=== PATIENT | male | born 1955 | race Caucasian/White ===

== ENCOUNTER 2017-11-08 10:27 | Emergency (ER) | payer BC ==
[2017-11-08] MEDS ORDERED: SODIUM CHLORIDE 0.9% 1,000 ML IV STA (11:05)
[2017-11-08] MEDS ORDERED: SODIUM CHLORIDE 0.9% 500 ML IV STA (11:05)
--- NOTE | 2017-11-08 11:08 | ED ---
Syncope HPI - General Chief Complaint: Syncope Stated Complaint: Near syncope Time Seen by Provider: 11/08/17 10:36 Source: patient, RN notes reviewed Mode of arrival: ambulatory Limitations: no limitations - History of Present Illness Initial Comments: This is a 61-year-old male who states she was at work standing for about 20 minutes. We started feeling lightheaded, diaphoretic racing heart, felt flushed. Vitals and passed out. Lasted even after he went to his office with air conditioning. No chest pain no overt shortness of breath. No other symptoms. He states this is happened before where he will feel as same type of dizziness. He is nonsmoker, no street drugs. No other modifying factors at this time. He is showing better at this time. MD Complaint: almost passed out - Related Data Previous Rx's Medication Instructions Recorded Meclizine [Antivert] 25 mg PO TID #20 tab 11/08/17 Allergies Allergy/AdvReac Type Severity Reaction Status Date / Time No Known Allergies Allergy Verified 11/08/17 11:51 Review of Systems ROS Statement: Those systems with pertinent positive or pertinent negative responses have been documented in the HPI. ROS Other: All systems not noted in ROS Statement are negative. Past Medical History Additional Past Medical History / Comment(s): diverticulosis History of Any Multi-Drug Resistant Organisms: None Reported Past Surgical History: Bowel Resection Past Psychological History: No Psychological Hx Reported Smoking Status: Never smoker Past Alcohol Use History: Occasional Past Drug Use History: None Reported General Exam - General Exam Comments Initial Comments: This is a well-developed well-nourished awake alert oriented times 3 male Limitations: no limitations General appearance: alert, in no apparent distress Head exam: Present: atraumatic, normocephalic, normal inspection Eye exam: Present: normal appearance, PERRL, EOMI. Absent: scleral icterus, conjunctival injection, periorbital swelling ENT exam: Present: normal exam, mucous membranes moist Neck exam: Present: normal inspection. Absent: tenderness, meningismus, lymphadenopathy Respiratory exam: Present: normal lung sounds bilaterally. Absent: respiratory distress, wheezes, rales, rhonchi, stridor Cardiovascular Exam: Present: regular rate, normal rhythm, normal heart sounds. Absent: systolic murmur, diastolic murmur, rubs, gallop, clicks GI/Abdominal exam: Present: soft, normal bowel sounds. Absent: distended, tenderness, guarding, rebound, rigid Extremities exam: Present: normal inspection, full ROM, normal capillary refill. Absent: tenderness, pedal edema, joint swelling, calf tenderness Back exam: Present: normal inspection Neurological exam: Present: alert, oriented X3, CN II-XII intact Psychiatric exam: Present: normal affect, normal mood Skin exam: Present: warm, dry, intact, normal color. Absent: rash Course Vital Signs 11/08/17 11/08/17 11/08/17 10:30 11:35 12:05 Temperature 97.9 F Pulse Rate 77 86 Pulse Rate [ 87 Right Sitting] Pulse Rate [ 93 Right Standing] Pulse Rate [ 74 Right Supine] Respiratory 16 16 Rate Blood Pressure 134/88 132/86 Blood Pressure 157/98 [Right Arm Sitting] Blood Pressure 147/95 [Right Arm Standing] Blood Pressure 132/82 [Right Arm Supine] O2 Sat by Pulse 98 96 Oximetry Medical Decision Making - Medical Decision Making I did was discussed with patient regarding the findings he's had several episodes of this in the past. He will be discharged at this time. The current presentation appears be consistent with a vasovagal reaction. He'll be placed on a short course of Antivert. - Lab Data Result diagrams: 11/08/17 10:55 11/08/17 10:55 Lab Results 11/08/17 11/08/17 11/08/17 Range/Units 10:55 10:55 10:55 WBC 5.2 (3.8-10.6) k/uL RBC 5.16 (4.30-5.90) m/uL Hgb 15.1 (13.0-17.5) gm/dL Hct 44.1 (39.0-53.0) % MCV 85.4 (80.0-100.0) fL MCH 29.2 (25.0-35.0) pg MCHC 34.2 (31.0-37.0) g/dL RDW 13.1 (11.5-15.5) % Plt Count 166 (150-450) k/uL Neutrophils % 52 % Lymphocytes % 39 % Monocytes % 5 % Eosinophils % 1 % Basophils % 0 % Neutrophils # 2.7 (1.3-7.7) k/uL Lymphocytes # 2.0 (1.0-4.8) k/uL Monocytes # 0.3 (0-1.0) k/uL Eosinophils # 0.1 (0-0.7) k/uL Basophils # 0.0 (0-0.2) k/uL PT (9.0-12.0) sec INR (<1.2) APTT (22.0-30.0) sec D-Dimer (<0.60) mg/L FEU Sodium 142 (137-145) mmol/L Potassium 4.1 (3.5-5.1) mmol/L Chloride 108 H (98-107) mmol/L Carbon Dioxide 25 (22-30) mmol/L Anion Gap 9 mmol/L BUN 14 (9-20) mg/dL Creatinine 0.90 (0.66-1.25) mg/dL Est GFR (CKD-EPI)AfAm >90 (>60 ml/min/1.73 sqM) Est GFR (CKD-EPI)NonAf >90 (>60 ml/min/1.73 sqM) Glucose 133 H (74-99) mg/dL Calcium 9.7 (8.4-10.2) mg/dL Magnesium 2.1 (1.6-2.3) mg/dL Total Bilirubin 0.8 (0.2-1.3) mg/dL AST 21 (17-59) U/L ALT 36 (21-72) U/L Alkaline Phosphatase 64 (38-126) U/L Total Creatine Kinase 67 (55-170) U/L CK-MB (CK-2) 0.5 (0.0-2.4) ng/mL CK-MB (CK-2) Rel Index 0.7 Troponin I <0.012 (0.000-0.034) ng/mL Total Protein 6.8 (6.3-8.2) g/dL Albumin 4.3 (3.5-5.0) g/dL TSH 1.050 (0.465-4.680) mIU/L 11/08/17 Range/Units 10:55 WBC (3.8-10.6) k/uL RBC (4.30-5.90) m/uL Hgb (13.0-17.5) gm/dL Hct (39.0-53.0) % MCV (80.0-100.0) fL MCH (25.0-35.0) pg MCHC (31.0-37.0) g/dL RDW (11.5-15.5) % Plt Count (150-450) k/uL Neutrophils % % Lymphocytes % % Monocytes % % Eosinophils % % Basophils % % Neutrophils # (1.3-7.7) k/uL Lymphocytes # (1.0-4.8) k/uL Monocytes # (0-1.0) k/uL Eosinophils # (0-0.7) k/uL Basophils # (0-0.2) k/uL PT 10.1 (9.0-12.0) sec INR 1.0 (<1.2) APTT 23.2 (22.0-30.0) sec D-Dimer 0.37 (<0.60) mg/L FEU Sodium (137-145) mmol/L Potassium (3.5-5.1) mmol/L Chloride (98-107) mmol/L Carbon Dioxide (22-30) mmol/L Anion Gap mmol/L BUN (9-20) mg/dL Creatinine (0.66-1.25) mg/dL Est GFR (CKD-EPI)AfAm (>60 ml/min/1.73 sqM) Est GFR (CKD-EPI)NonAf (>60 ml/min/1.73 sqM) Glucose (74-99) mg/dL Calcium (8.4-10.2) mg/dL Magnesium (1.6-2.3) mg/dL Total Bilirubin (0.2-1.3) mg/dL AST (17-59) U/L ALT (21-72) U/L Alkaline Phosphatase (38-126) U/L Total Creatine Kinase (55-170) U/L CK-MB (CK-2) (0.0-2.4) ng/mL CK-MB (CK-2) Rel Index Troponin I (0.000-0.034) ng/mL Total Protein (6.3-8.2) g/dL Albumin (3.5-5.0) g/dL TSH (0.465-4.680) mIU/L - Radiology Data Radiology results: report reviewed (I did review the imaging and report no acute findings.), image reviewed Disposition Clinical Impression: Vasovagal episode, Vertigo Disposition: HOME SELF-CARE Condition: Good Instructions: Vertigo (ED), Near Syncope (ED) Prescriptions: Meclizine [Antivert] 25 mg PO TID #20 tab Is patient prescribed a controlled substance at d/c from ED?: No Referrals: Bruna Edwards MD [Primary Care Provider] - 1-2 days
[2017-11-08 11:34] LABS: ALT 36 U/L (21-72); AST 21 U/L (17-59); Albumin 4.3 g/dL (3.5-5.0); Alkaline Phosphatase 64 U/L (38-126); Anion Gap 9 mmol/L; Blood Urea Nitrogen 14 mg/dL (9-20); Calcium 9.7 mg/dL (8.4-10.2); Carbon Dioxide 25 mmol/L (22-30); Chloride 108 mmol/L (98-107); Glucose 133 mg/dL (74-99); Magnesium 2.1 mg/dL (1.6-2.3); Potassium 4.1 mmol/L (3.5-5.1); Sodium 142 mmol/L (137-145); Total Bilirubin 0.8 mg/dL (0.2-1.3); Total Protein 6.8 g/dL (6.3-8.2)
[2017-11-08 11:39] LABS: D-Dimer 0.37 mg/L FEU (<0.60); Partial Thromboplastin Time 23.2 sec (22.0-30.0); Prothrombin Time 10.1 sec (9.0-12.0)
[2017-11-08 11:43] LABS: Basophils % (A) 0 %; Eosinophils # (A) 0.1 k/uL (0-0.7); Eosinophils % (A) 1 %; HCT 44.1 % (39.0-53.0); HGB 15.1 gm/dL (13.0-17.5); Lymphocytes % (A) 39 %; MCH 29.2 pg (25.0-35.0); MCHC 34.2 g/dL (31.0-37.0); MCV 85.4 fL (80.0-100.0); Mean Platelet Volume 7.2; Monocytes # (A) 0.3 k/uL (0-1.0); Monocytes % (A) 5 %; Neutrophils # (A) 2.7 k/uL (1.3-7.7); Neutrophils % (A) 52 %; Platelet Count 166 k/uL (150-450); RBC 5.16 m/uL (4.30-5.90); RDW 13.1 % (11.5-15.5); WBC 5.2 k/uL (3.8-10.6)
[2017-11-08 11:50] LABS: Creatine Kinase 67 U/L (55-170)
--- NOTE | 2017-11-08 11:52 | XR ---
EXAMINATION TYPE: XR chest 2V DATE OF EXAM: 11/08/2017 COMPARISON: NONE HISTORY: Syncope, fluttering in chest TECHNIQUE: Frontal and lateral views of the chest are obtained. FINDINGS: There is no focal air space opacity, pleural effusion, or pneumothorax seen. The cardiac silhouette size is within normal limits. The osseous structures are intact. There are overlying car diac leads. IMPRESSION: No acute cardiopulmonary process.
[2017-11-08 12:02] LABS: Creatine Kinase MB 0.5 ng/mL (0.0-2.4); Troponin I <0.012 ng/mL (0.000-0.034)
[2017-11-08] MEDS ORDERED: MECLIZINE 12.5 MG TAB PO STA (12:46)
--- NOTE | 2017-11-08 13:25 | CT ---
EXAMINATION TYPE: CT brain wo con DATE OF EXAM: 11/08/2017 COMPARISON: None INDICATION: Episodes of dizziness, near syncope and weakness DLP: 1255 mGycm, Automated exposure control for dose reduction was used. CONTRAST: None CT of the brain is performed utilizing 3 mm thick sections through the posterior fossa and 3 mm thick sections through the remaining calvarium. Study is performed within 24 hours of arrival to the hosp [facility]. No abnormal hyperdensity is present to suggest an acute intracranial hemorrhage. No mass lesion is evident. No acute infarcts are evident. Ventricles and sulci are appropriate for the patient age. Paranasal sinuses and mastoid air cells within the [id number] are clear. IMPRESSIONS: 1. No acute intracranial process.
[2017-11-08 14:01] VITALS: BP 128/85; PULSE 72; RESP 18; TEMP 98.4
== END 2017-11-08 14:12 | disposition home or self-care (01) ==
LOC: EC 10:27
DX: R42 Dizziness and giddiness (principal); R61 Generalized hyperhidrosis; R00.0 Tachycardia, unspecified
CPT/HCPCS: 36415; 70450; 71046; 80053; 82550; 82553; 83735; 84443; 84484; 85025; 85379; 85610; 85730; 93005; 96360; 96361; 99284

== ENCOUNTER 2017-12-06 11:52 | Day surgery (SDC) | payer BC ==
[2017-11-29 14:56] VITALS: BMI 33.0
[~2017-12-06 11:52] MED LIST: DEXAMETHASONE SOD PHOSPHATE 10 MG/ML 1 ML VIAL IV ONE; MIDAZOLAM 2 MG/2 ML VIAL IV PRN; ONDANSETRON 4 MG/2 ML VIAL IVP ONE; SODIUM CHLORIDE 0.9% 1,000 ML IV SCH; fentaNYL (PF) 50 MCG/ML 2 ML AMP IV PRN
[2017-12-06] MEDS ORDERED: SODIUM CHLORIDE 0.9% 1,000 ML IV ONE (12:54)
[2017-12-06] MEDS ORDERED: PROPOFOL 10 MG/ML 20 ML VIAL IV ONE (14:30)
[2017-12-06] MEDS ORDERED: ISOPROTERENOL 250 MCG/1.25 ML SYR IV ONE (14:30)
[2017-12-06] MEDS ORDERED: HYDROmorphone (PF) 1 MG/ML ONE (14:30)
[2017-12-06] MEDS ORDERED: fentaNYL (PF) 50 MCG/ML 2 ML AMP ONE (14:30)
[2017-12-06] MEDS ORDERED: MIDAZOLAM 2 MG/2 ML VIAL ONE (14:30)
[2017-12-06] MEDS ORDERED: LIDOCAINE 1% INJ 10MG/ML (20 ML MDV) SQ ONE ×2 (14:59→15:06)
[2017-12-06] MEDS ORDERED: HEPARIN SODIUM (1,000 UNIT/ML) 1,000 UNIT in SODIUM CHLORIDE 0.9% 1,000 ML IRRIGATION ONE (16:59)
[2017-12-06] MEDS ORDERED: HYDROcodone/APAP 5-325MG 1 EACH TAB PO PRN (17:04)
[2017-12-06] MEDS ORDERED: ACETAMINOPHEN TAB 325 MG TAB PO PRN (17:04)
[2017-12-06] MEDS ORDERED: ACETAMINOPHEN IV (For NPO) 1,000 MG in EMPTY BAG 1 BAG IVPB ONE (17:04)
[2017-12-06] MEDS: LACTATED RINGERS 1,000 ML IV SCH (18:00)
--- NOTE | 2017-12-06 23:08 | CE ---
CARDIAC ELECTROPHYSIOLOGY REPORT Bolivar Henning is a 61-year-old male patient who has recurrent palpitations, presyncope, despite beta arianna therapy and he was brought for an EP study and possible radiofrequency ablation. Patient was brought to the EP lab in a fasting state. Written informed consent was obtained prior to the procedure. The right and left groins were prepped and draped as per protocol. 1% lidocaine was used for local anesthesia. Three venous sheaths in the right femoral vein and 1 venous sheath the left femoral vein. Four diagnostic catheters were placed, high right atrial, His bundle and coronary sinus and RV. The patient was in sinus rhythm at the start of the study. Sinus cycle length 753 milliseconds, pr 184, QRS 89, QT 360 milliseconds. AH 118 milliseconds, HV interval 54 milliseconds. With para Hisian pacing jessica response was noted. Sinus node recovery times of 600 500, and 400 milliseconds were 880, 952 and 918 milliseconds respectively. Corresponding corrected sinus node recovery times within normal limits. AV node Wenckebach block 390 milliseconds, VA Wenckebach block 410 milliseconds. The AV node ERP 600/290 milliseconds. Pacing was performed from the high right atrium, right ventricle, as well as from the coronary sinus. Extra stimulation was also performed. No arrhythmias were induced. There was no evidence of slow pathway conduction or accessory pathway conduction adequately. Isuprel wide-open followed by 2 mics and later at 2 mics were started and burst stimulation from the coronary sinus os. Atrial tachycardia with the high to low sequence suggestive of right atrial tachycardia was induced. This was consistently induced with burst stimulation or straight pacing from the coronary sinus os on Isuprel. The tachycardia cycle length varied especially with the level of Isuprel stimulation. The tachycardia cycle length was fast and cycle length varied with the degree of Isuprel stimulation. 3D electro anatomic mapping was performed during tachycardia in the right atrium. char dust cleaner and salvager tip catheter was used. The tachycardia was localized to the posterior lateral right atrium at the mid level. At the site of earliest activation there was an excellent unipolar signals that was earlier than the P wave, was considerably earlier than the P wave. Detailed mapping was performed around this area. Following that, it was very difficult to induce the tachycardia. It was likely that mechanical pressure may have affected the tachycardia. RF ablation was applied at this site and around this site. Contact force of around 10 g was achieved. RF between 25-30 pulse was used. Thereafter, high-dose Isuprel was employed and burst stimulation was performed from the lateral wall of the right atrium as well as from the coronary sinus and there was no tachycardia inducible. He did have PACs in an eccentric pattern but no clinical tachycardia. At this time the patient was completely awake for the last part of the study. It was also evident during conscious sedation the patient has significant sleep apnea. At the end of the procedure, the tachycardia was completely noninducible in the fully awake state on high-dose Isuprel with burst stimulation and straight pacing from the lateral wall of the right atrium as well as the coronary sinus. All catheters were then removed. The patient was transferred back to telemetry. RESULTS: Successful mapping and ablation for focal mid right atrial tachycardia, posterior lateral location. The phrenic nerve was tested prior to ablation. At the end of the procedure, normal diaphragmatic movement was confirmed with inspiration and expiration. Patient tolerated the procedure well without any acute complications. MMODL / IJN: [id number] /
[2017-12-07] MEDS: LACTATED RINGERS 1,000 ML IV SCH (00:33)
[2017-12-07 07:59] VITALS: BP 130/79; PULSE 84; RESP 18; TEMP 98.2
--- NOTE | 2017-12-07 08:11 | P.DS ---
Providers Attending physician: Maximiliano Lai Primary care physician: [facility] Course: Patient is doing well from a cardiac standpoint. No chest discomfort, no pleuritic chest discomfort no dizziness lightheadedness palpitations. Groin is healed well no hematoma or swelling no pain On examination he is afebrile 98.2F pulse rate in the 80s blood pressure 130/ 79 mmHg normal respirations Normal heart sounds no murmurs no gallops no rub Breath sounds are clear no adventitious sounds Abdomen soft nontender Groins of healed well there is no hematoma no tenderness no oozing Impression Symptomatic right atrial tachycardia associated with presyncope mapped to the mid right atrial free wall, posterior lateral Status post successful ablation in the tachycardia was rendered noninducible Phrenic nerve intact during and after ablation Obstructive sleep apnea Suggest Sleep apnea assessment Stop metoprolol I'll see the patient again in about 1-2 weeks for follow-up stress test will be performed Patient Condition at Discharge: Stable Plan - Discharge Summary Discharge Rx Participant: Yes New Discharge Prescriptions: Continue Meclizine [Antivert] 25 mg PO TID #20 tab Discontinued Metoprolol Tartrate [Lopressor] 50 mg PO BID Discharge Medication List Meclizine [Antivert] 25 mg PO TID #20 tab 11/08/17 [Rx] Follow up Appointment(s)/Referral(s): Maximiliano Lai MD [STAFF PHYSICIAN] - 2 Weeks (Follow Dr. Lai/Lyla Starr) Activity/Diet/Wound Care/Special Instructions: Post EP study - Ablation instructions 1. Keep access sites dry for 2 days. 2. No heavy lifting or straining for 2 days. 3. Avoid bending the hips repeatedly for 2 days. 4. You may go up and down stairs slowly Call if the following is noted 1. Bleeding, increasing swelling or pain at the access sites. 2. Increasing chest discomfort, especially upon taking a deep breath. 3. Increasing shortness of breath, at rest or with exertion. 4. Undue cough / phlegm 5. Difficulty or pain while swallowing. 6. Pain or change in color in the extremities. 7. Fever, chills, rigors. 8. Increasing headache or neurologic symptoms. 9. Dizziness, fainting, palpitations Stop metoprolol Follow estefani Leon 2 weeks Discharge Disposition: HOME SELF-CARE
== END 2017-12-07 11:05 | disposition home or self-care (01) ==
LOC: CATHEP 11:52 → 3OBS 17:01 → CATHEP 12-07 11:05
PROVIDERS: ATTEND Internal Medicine Clinical Cardiac Electrophysiology
DX: I47.1 Supraventricular tachycardia (principal); G47.33 Obstructive sleep apnea (adult) (pediatric); Z79.899 Other long term (current) drug therapy
CPT/HCPCS: 93623; 93613; 93653; C1894; C1769 ×2; C1730 ×2; C1732; J2001; J1644

== ENCOUNTER → 2018-04-27 | Outpatient (CLI) | payer BC ==
--- NOTE | 2018-04-27 17:47 | PN ---
PROGRESS NOTE DATE OF SERVICE: 04/27/2018 62-year-old gentleman who has been [facility] for treatment of obstructive sleep apnea-hypopnea syndrome. Recently, patient had diagnostic polysomnogram and CPAP titration. Sleep study showed that he has severe sleep apnea and subsequently with CPAP titration, his respiration was controlled. The patient received his CPAP unit and he is using it now every night but does not like his mask, does not like CPAP, still wakes up from sleep with the CPAP therapy. Star Sleepiness Scale today is 3. I checked his CPAP unit. It is in automatic regimen, ranging the pressure 5-15. Usage is every night and 27 out of 30 nights more than 4 hours with average usage is 6.7 hours. Pressure is 14.7 cm of water. Leak is 31 L/minute which is borderline. Apnea- hypopnea index is only 2.2, which is perfect. MEDICATIONS: None. PHYSICAL EXAM: Patient in no distress BP 120/81, HR 83, RR 16, weight 270.4, temperature 97.9. Oxygen saturation at room air 96%. Oropharynx low position of soft palate, Mallampati 3. Neck Supple, no JVD. Thyroid is not palpable. LUNGS Clear to percussion and to auscultation. Good air exchange. No wheezing or rhonchi. HEART S1, S2 regular. No murmurs, gallops, or rubs. ABDOMEN: Slightly obese. Soft and nontender. Bowel sounds are present. No organomegaly appreciated. EXTREMITIES No clubbing or cyanosis. 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 Cranial nerves 2 to 7 intact. There is no fasciculation or atrophy. noted. No focal deficits observed. IMPRESSION: 1. Severe obstructive sleep apnea-hypopnea syndrome, apnea-hypopnea index 62.7 with oxygen desaturation to 79.4%, on control with CPAP at a pressure of 15 cm of water. Patient demonstrated great compliance with treatment and benefitting from treatment. 2. The patient feels some discomfort with full-face mask related to the leak and probably also the pressure. 3. Obesity. 4. History of cardiac arrhythmias, status post cardiac ablation. 5. History of episodes of vertigo related to episodes of cardiac arrhythmia. PLAN: 1. Patient will try to continue to use CPAP equipment every night. 2. I will decrease maximal pressure down to 12 cm of water. 3. We will consider to use nasal pillow mask with nasal sleeps and chinstrap to make it more comfortable for the patient. 4. Other option may include using of Dream Wear full-face mask. 5. Losing weight. 6. Sleep hygiene with regular time bed for 7.5 hours. 7. Stimulus control. No watching TV in bedroom. No watching clock in bedroom. Thank you very much for allowing me to participate in management of your patient. Sincerely, Dat Pedraza MD, PhD, FAASM Diplomat of [employer] [employer] Maintenance [employer] [facility] [facility] MMODL / IJN: [id number] /
== END | disposition home or self-care (01) ==
LOC: SLEEP 15:32
PROVIDERS: ATTEND Internal Medicine
DX: G47.33 Obstructive sleep apnea (adult) (pediatric) (principal); E66.9 Obesity, unspecified; Z99.89 Dependence on other enabling machines and devices; Z86.79 Personal history of other diseases of the circulatory system; Z86.69 Personal history of other diseases of the nervous system and sense organs; Z98.890 Other specified postprocedural states

== ENCOUNTER → 2020-12-24 | Outpatient (CLI) | payer MEDICARE | END | disposition home or self-care (01) | LOC: LABWHC1 12:08 | PROVIDERS: ATTEND Nurse Practitioner Family | DX: Z53.9 Procedure and treatment not carried out, unspecified reason (principal) ==

== ENCOUNTER 2021-03-31 22:03 | Emergency (ER) | payer MEDICARE ==
[2021-03-31] MEDS ORDERED: methylPREDNISolone SOD SUCCI 125 MG/2 ML VIAL IV STA (22:11)
[2021-03-31] MEDS ORDERED: diphenhydrAMINE 50 MG/ML 1 ML VIAL IVP STA (22:11)
[2021-03-31] MEDS ORDERED: FAMOTIDINE 20 MG/2 ML VIAL IV STA (22:11)
[2021-03-31] MEDS ORDERED: SODIUM CHLORIDE 0.9% 1,000 ML IV STA (22:12)
[2021-03-31 22:27] VITALS: PULSE 71
--- NOTE | 2021-03-31 23:11 | ED ---
General Adult HPI - General Chief complaint: Allergic Reaction Stated complaint: Allergic reation seafood Time Seen by Provider: 03/31/21 22:11 Source: patient Mode of arrival: ambulatory Limitations: no limitations - History of Present Illness Initial comments: 65-year-old male presents to the emergency room for ALLERGIC reaction. Patient states he was eating shrimp and shortly afterwards started to get itching all over. Patient states about an hour prior to arrival he started to get swelling in his face. States his left eye is swollen if he has swelling on the inside of his lips. States his throat is scratchy.Patient has no other complaints at this time including shortness of breath, chest pain, abdominal pain, nausea or vomiting, headache, or visual changes. - Related Data Previous Rx's Medication Instructions Recorded Meclizine [Antivert] 25 mg PO TID #20 tab 11/08/17 EPINEPHrine (Auto Inject) [Epipen] 0.3 mg IM ONCE PRN #2 each 04/01/21 diphenhydrAMINE HCL [Benadryl] 1 - 2 tab PO Q6H PRN #20 tab 04/01/21 predniSONE 50 mg PO DAILY #5 tablet 04/01/21 Allergies Allergy/AdvReac Type Severity Reaction Status Date / Time shellfish derived [Shrimp] Allergy Anaphylaxis Verified 03/31/21 22:08 Review of Systems ROS Statement: Those systems with pertinent positive or pertinent negative responses have been documented in the HPI. ROS Other: All systems not noted in ROS Statement are negative. Past Medical History Additional Past Medical History / Comment(s): diverticulosis ; vertigo; see Dr Lai's H&P History of Any Multi-Drug Resistant Organisms: None Reported Past Surgical History: Bowel Resection Additional Past Surgical History / Comment(s): Colonoscopy Past Anesthesia/Blood Transfusion Reactions: No Reported Reaction Past Psychological History: No Psychological Hx Reported Smoking Status: Never smoker Past Alcohol Use History: Occasional Past Drug Use History: None Reported - Past Family History Mother Family Medical History: No Reported History General Exam Limitations: no limitations General appearance: alert, in no apparent distress Head exam: Present: atraumatic Eye exam: Present: PERRL, EOMI, periorbital swelling (Left sided periorbital edema noted. Nonerythematous, nontender.). Absent: scleral icterus, conjunctival injection ENT exam: Present: mucous membranes moist. Absent: normal oropharynx (The patient has some edema of the inner upper lip. He has no edema of the tongue or throat. Oropharynx appears patent.) Neck exam: Present: normal inspection, full ROM. Absent: tenderness Respiratory exam: Present: normal lung sounds bilaterally. Absent: respiratory distress, wheezes Cardiovascular Exam: Present: regular rate, normal rhythm, normal heart sounds Course Vital Signs 03/31/21 03/31/21 03/31/21 22:05 22:25 22:28 Temperature 97.4 F L Pulse Rate 87 71 Respiratory 18 18 20 Rate Blood Pressure 174/98 146/101 O2 Sat by Pulse 95 97 Oximetry Medical Decision Making - Medical Decision Making Vitals are stable. Patient did have evidence of angioedema on exam with swelling of his lips and periorbital areas. Patient was given Solu-Medrol Benadryl Pepcid as well as IM epi. Patient was monitored for 3 hours in the emergency room. Patient had significant improvement in symptoms. No longer having any sensations in his throat. Patient is stable for outpatient follow- up. Patient will be discharged home with prednisone and Benadryl and epinephrine pen. Patient will return here for any worsening symptoms. Disposition Clinical Impression: Allergic reaction Disposition: HOME SELF-CARE Condition: Good Instructions (If sedation given, give patient instructions): Anaphylaxis (ED) Additional Instructions: Take medications as directed. Follow-up with your doctor at your appointment . Return to the emergency room for any worsening symptoms. Prescriptions: diphenhydrAMINE HCL [Benadryl] 1 - 2 tab PO Q6H PRN #20 tab PRN Reason: Allergic Reaction EPINEPHrine (Auto Inject) [Epipen] 0.3 mg IM ONCE PRN #2 each PRN Reason: Anaphylaxis predniSONE 50 mg PO DAILY #5 tablet Is patient prescribed a controlled substance at d/c from ED?: No Referrals: Bruna Edwards MD [Primary Care Provider] - 1-2 days Time of Disposition: 00:55
[2021-04-01 01:05] VITALS: BP 131/91; RESP 18; TEMP 98.7
== END 2021-04-01 01:05 | disposition home or self-care (01) ==
LOC: EC 22:03
DX: T78.40XA Allergy, unspecified, initial encounter (principal); Z91.013 Allergy to seafood
CPT/HCPCS: 99283; 96374; 96375; 96361; 96372; J0171; J1200; J2930; 99284

== ENCOUNTER → 2021-10-06 | Outpatient (CLI) | payer MEDICARE | END | disposition home or self-care (01) | LOC: LABWHC1 14:03 | PROVIDERS: ATTEND Otolaryngology | DX: R53.83 Other fatigue (principal); H91.90 Unspecified hearing loss, unspecified ear | CPT/HCPCS: 36415 ==

== ENCOUNTER → 2021-10-26 | Outpatient (CLI) | payer MEDICARE ==
--- NOTE | 2021-10-27 02:18 | MR ---
EXAMINATION TYPE: MR brain and iac wo/w con DATE OF EXAM: 10/26/2021 COMPARISON: None HISTORY: Hearing loss & tinnitus left ear CONTRAST: Standard multiplanar, multisequence MRI departmental protocol images were obtained without contrast a nd with 12 mL intravenous Gadavist gadolinium contrast. The diffusion images show no evidence of acute infarct. There is mild cerebral cortical atrophy. There is no mass effect nor midline shift. No sign of intrac ranial hemorrhage. On the FLAIR images there are a few scattered white matter high signal foci in bot h frontal hemispheres. These measure up to 4 mm and total numbers approximate 5. The brainstem is intact. Cerebellum is intact. Sella turcica appears normal. Corpus callosum is intac t. No evidence of orbital mass. Additional thin sections through the posterior fossa show normal internal auditory canals. The acoust ic nerve and vestibular nerve appear normal. No evidence of cerebellopontine angle mass. The contrast images show no pathologic enhancement. There is normal enhancement of the venous sinuses. No evidenc e of posterior fossa mass. There is normal signal pattern of the temporal bones. No sign of mastoidit is. IMPRESSION: Mild atrophy. There are a few scattered white matter high signal foci that are nonspecific. This like ly relates to some mild microvascular ischemia. No evidence of focal posterior fossa abnormality.
== END | disposition home or self-care (01) ==
LOC: RADMRIMAIN 18:08
PROVIDERS: ATTEND Otolaryngology
DX: G31.9 Degenerative disease of nervous system, unspecified (principal)
CPT/HCPCS: 70553; A9585